=== PATIENT | male | born 2000 | race Caucasian/White ===

== ENCOUNTER 2022-03-17 13:18 | Emergency (ER) | payer SELFPAY ==
[~2022-03-17] VITALS: Ht 193 cm; Wt 90.9 kg
[2022-03-17 13:21] VITALS: TEMP 97.4
[2022-03-17 14:39] VITALS: BP 152/82; PULSE 91
== END 2022-03-17 14:39 | disposition home or self-care (01) ==
LOC: COL.ER 13:18
DX: S82.852A Displaced trimalleolar fracture of left lower leg, initial encounter for closed fracture (principal); Z28.310 Unvaccinated for COVID-19; X50.1XXA Overexertion from prolonged static or awkward postures, initial encounter

== ENCOUNTER 2022-03-20 08:48 | Day surgery (SDC) | payer SELFPAY ==
[~2022-03-20] VITALS: Ht 193 cm; Wt 91.8 kg
[2022-03-20] MEDS ORDERED: NAPROSYN500 MG PO (09:46)
[2022-03-20] MEDS ORDERED: NORCO 325 MG-51 TAB PO (09:47)
[2022-03-20] MEDS ORDERED: NORCO 325 MG-7.1 TAB PO (10:15)
[2022-03-20 10:16] VITALS: BP 151/68; PULSE 59; TEMP 97.9
--- NOTE | 2022-03-20 10:20 | NUR ---
Patient taken to PACU per cart to have block placed prior to surgery by Mike Naik CRNA.
[2022-03-20 13:25] VITALS: BP 138/68; PULSE 56
--- NOTE | 2022-03-20 13:25 | NUR ---
Patient returns to room 6 per cart from PACU accompanied by Katt SANTOS and patient is awake and alert. Foot of cart elevated and ice on the outer left lateral ankle. Toes are warm to touch. Posterior splint with bulky laila wrap dressing in place. IV fluids infusing. Temp 98.3. Family in the room. Siderails up x2 and call light in reach.
[2022-03-20 13:40] VITALS: BP 141/68; PULSE 53
--- NOTE | 2022-03-20 13:40 | NUR ---
States that the left leg remains numb due to block that was placed pre-operatively. Toes on the left foot remain warm. Denies nausea. Cursing. States that he wants to go home.
[2022-03-20 13:42] VITALS: BP 138/68; PULSE 56; TEMP 98.3
--- NOTE | 2022-03-20 13:52 | NUR ---
Sitting on the edge of the cart and using urinal. IV discontinued and site is free of redness. Voids large amounts of yellow urine.
--- NOTE | 2022-03-20 13:58 | NUR ---
Patient is dressed by family. Left leg remains numb and denies pain. States he can feel his toes. Stressed importance of the need to ice and elevate constitently for the next five days to help with pain and swelling. Instructed on signs and symptoms of infection. Also instructed on taking pain medications with food and to avoid constipation by taking stool softener.
--- NOTE | 2022-03-20 14:00 | NUR ---
Discharge instructions given to the patient and signed. Assisted into wheelchair and taken to the front door and assisted into private vehicle with instructions in hand.
== END 2022-03-20 14:00 | disposition home or self-care (01) ==
LOC: SDCO 08:48
DX: S82.842A Displaced bimalleolar fracture of left lower leg, initial encounter for closed fracture (principal); X58.XXXA Exposure to other specified factors, initial encounter; Y93.9 Activity, unspecified; Y92.007 Garden or yard of unspecified non-institutional (private) residence as the place of occurrence of the external cause; U07.0 Vaping-related disorder; Z28.310 Unvaccinated for COVID-19; Z28.9 Immunization not carried out for unspecified reason
CPT/HCPCS: C1713; J1100; J2250; J2405; J2704; J2795; J3010; J7120